=== PATIENT | male | born 1970 | race Hispanic/Latino ===

== ENCOUNTER 2018-03-25 22:40 | Emergency (ER) | payer OTHER ==
[2018-03-25 23:28] LABS: APPEARANCE,URINE Clear (CLEAR); BILIRUBIN,URINE Negative (NEGATIVE); GLUCOSE, URINE (UA) Negative (NEGATIVE); KETONES,URINE Negative (NEGATIVE); LEUKOCYTE ESTERASE ,URINE Small (NEGATIVE); NITRATE,URINE Negative (NEGATIVE); OCCULT BLOOD,URINE Large (NEGATIVE); PH,URINE 6.5 (5.0-8.0); PROTEIN,URINE POS 2+ (NEGATIVE)
[2018-03-25 23:29] LABS: COLOR,URINE BROWN (YELLOW)
[2018-03-25 23:36] LABS: BACTERIA,URINE None Seen /HPF (None Seen); RBC,URINE 51-100 /HPF (0-1); SQUAMOUS EPITHELIAL CELL,UR Few /HPF (0-2)
[2018-03-26 00:59] LABS: BASOPHILS % (AUTO) 0.7 % (0.0-5.0); EOSINOPHILS % (AUTO) 1.5 % (0.0-8.0); HEMATOCRIT 45.9 % (42-54); MEAN CORPUSCULAR HEMOGLOBIN 28.6 pg (27.0-33.0); MEAN CORPUSCULAR HGB CONC 34.6 g/dL (32.0-36.0); MEAN CORPUSCULAR VOLUME 82.7 fL (79-99); MONOCYTES % (AUTO) 5.6 % (3.0-13.0); NEUTROPHILS % (AUTO) 82.2 % (40.0-77.0); NUCLEATED RED BLOOD CELLS 0.1 % (0.0-0.19); PLATELET COUNT (AUTO) 233 K/uL (130-400); RED BLOOD CELL COUNT(AUTO) 5.54 MIL/uL (4.50-6.20); RED CELL DISTRIBUTION WIDTH 14.2 % (11.0-15.5); WHITE BLOOD COUNT (AUTO) 13.4 K/uL (4.8-10.8)
[2018-03-26] MEDS ORDERED: ACETAMINOPHEN 325 MG TAB ONE (00:59)
[2018-03-26] MEDS ORDERED: SULFAMETHOX-TMP DS 800/160 TAB ONE (00:59)
[2018-03-26 01:25] LABS: ALBUMIN 3.9 g/dL (3.5-5.0); BILIRUBIN,TOTAL 0.8 mg/dL (0.2-1.0); CREATININE 1.1 mg/dL (0.5-1.5); POTASSIUM 3.5 mmol/L (3.5-5.1); TOTAL PROTEIN, SERUM 8.2 g/dL (6.0-8.3)
[2018-03-26] MEDS ORDERED: CLONIDINE HCL 0.1 MG TABLET ONE (01:28)
== END 2018-03-26 01:55 | disposition home or self-care (01) ==
LOC: EDH 22:40
DX: N39.0 Urinary tract infection, site not specified (principal); I10 Essential (primary) hypertension; Z79.899 Other long term (current) drug therapy
CPT/HCPCS: 36415; 80053; 81001; 85025; 87040

== ENCOUNTER 2018-05-04 19:48 | Inpatient (IN) | payer SELFPAY ==
[~2018-05-04] VITALS: Ht 172.7 cm; Wt 110.2 kg
[2018-05-04 20:25] LABS: APPEARANCE,URINE Clear (CLEAR); BILIRUBIN,URINE Negative (NEGATIVE); COLOR,URINE Yellow (YELLOW); GLUCOSE, URINE (UA) Negative (NEGATIVE); KETONES,URINE Negative (NEGATIVE); LEUKOCYTE ESTERASE ,URINE Small (NEGATIVE); NITRATE,URINE Negative (NEGATIVE); OCCULT BLOOD,URINE Moderate (NEGATIVE); PROTEIN,URINE POS 1+ (NEGATIVE); UROBILINOGEN,URINE 0.2 mg/dL (0.2-1.0)
[2018-05-04] MEDS ORDERED: KETOROLAC TROMETHAMINE 30MG/ML ONE (20:40)
[2018-05-04 20:41] LABS: BACTERIA,URINE Few /HPF (None Seen)
[2018-05-04 20:56] LABS: BASOPHILS % (AUTO) 0.4 % (0.0-5.0); EOSINOPHILS % (AUTO) 1.1 % (0.0-8.0); HEMATOCRIT 42.9 % (42-54); LYMPHOCYTES % (AUTO) 12.7 % (21.0-51.0); MEAN CORPUSCULAR HEMOGLOBIN 27.1 pg (27.0-33.0); MEAN CORPUSCULAR HGB CONC 33.1 g/dL (32.0-36.0); MEAN CORPUSCULAR VOLUME 81.9 fL (79-99); MONOCYTES % (AUTO) 5.1 % (3.0-13.0); NEUTROPHILS % (AUTO) 80.7 % (40.0-77.0); PLATELET COUNT (AUTO) 387 K/uL (130-400); RED BLOOD CELL COUNT(AUTO) 5.24 MIL/uL (4.50-6.20); WHITE BLOOD COUNT (AUTO) 12.2 K/uL (4.8-10.8)
[2018-05-04 21:08] LABS: CREATININE 1.8 mg/dL (0.5-1.5); POTASSIUM 3.9 mmol/L (3.5-5.1)
[2018-05-04 21:12] LABS: ALBUMIN 3.7 g/dL (3.5-5.0); BILIRUBIN,TOTAL 0.3 mg/dL (0.2-1.0); TOTAL PROTEIN, SERUM 8.2 g/dL (6.0-8.3)
[2018-05-05] VITALS (7 sets, daily range): BP systolic 166–220; BP diastolic 76–116
[2018-05-05] MEDS ORDERED: ACETAMINOPHEN 325 MG TAB PO PRN
[2018-05-05] MEDS ORDERED: MORPHINE SULFATE 4 MG/1ML SYG IV PRN
[2018-05-05] MEDS ORDERED: ONDANSETRON HCL 4 MG/2 ML VIAL IV PRN
[2018-05-05] MEDS ORDERED: LEVOFLOXACIN 500 MG/D5W 100 ML 100 ML ONE (00:47)
[2018-05-05] MEDS ORDERED: LOSA100T20 PO (01:52)
[2018-05-05] MEDS ORDERED: METO-408 PO (01:52)
[2018-05-05] MEDS ORDERED: METOPROLOL TARTRATE 1 MG/ML 5ML VIAL IV PRN (03:15)
[2018-05-05] MEDS ORDERED: METOPROLOL TARTRATE 1 MG/ML 5ML VIAL IV ONE (03:28)
[2018-05-05] MEDS: SODIUM CHLORIDE 0.9% 1000ML 1,000 ML IV SCH ×4 (03:32→19:38)
[2018-05-05] MEDS: FAMOTIDINE 20MG TAB 20 MG TAB PO SCH ×2 (07:56→21:00)
[2018-05-05] MEDS: AMLODIPINE BESYLATE 5 MG TAB PO SCH ×2 (07:56→09:00)
[2018-05-05] MEDS: HYDRALAZINE HCL 20 MG/ML VIAL IV PRN ×2 (11:45→15:10)
[2018-05-05] MEDS ORDERED: KETOROLAC TROMETHAMINE 15MG/ML IM PRN (15:00)
[2018-05-05 16:18] LABS: CREATININE 1.5 mg/dL (0.5-1.5)
[2018-05-05] MEDS ORDERED: ACETAMINOPHEN-CODEINE 300/30MG TAB PO PRN (16:30)
[2018-05-05] MEDS ORDERED: LOSARTAN 100 MG TABLET PO ONE (16:45)
[2018-05-05] MEDS ORDERED: TAMSULOSIN HCL 0.4 MG CAP.ER.24H PO ONE (16:45)
[2018-05-05] MEDS ORDERED: METOPROLOL TARTRATE 25 MG TAB PO ONE (16:45)
[2018-05-05] MEDS ORDERED: IOHEXOL 350 MG/ML 100ML INFUS..BTL IV ONE (20:40)
[2018-05-05] MEDS: METOPROLOL TARTRATE 25 MG TAB PO SCH (21:00)
[2018-05-05] MEDS: LEVOFLOXACIN 500 MG/D5W 100 ML 100 ML IV SCH ×2 (21:02)
[2018-05-06] MEDS: SODIUM CHLORIDE 0.9% 1000ML 1,000 ML IV SCH ×4 (03:25→20:05)
[2018-05-06 03:35] VITALS: BP 167/70
[2018-05-06 04:34] LABS: CREATININE 1.6 mg/dL (0.5-1.5); POTASSIUM 3.6 mmol/L (3.5-5.1)
[2018-05-06 07:49] VITALS: BP 185/77
[2018-05-06] MEDS: LOSARTAN 100 MG TABLET PO SCH (08:19)
[2018-05-06] MEDS: TAMSULOSIN HCL 0.4 MG CAP.ER.24H PO SCH (08:19)
[2018-05-06] MEDS: METOPROLOL TARTRATE 25 MG TAB PO SCH ×2 (08:19→20:05)
[2018-05-06] MEDS: AMLODIPINE BESYLATE 5 MG TAB PO SCH (08:19)
[2018-05-06] MEDS: FAMOTIDINE 20MG TAB 20 MG TAB PO SCH ×2 (08:33→20:05)
[2018-05-06] MEDS ORDERED: ENOXAPARIN SODIUM 30 MG/0.3 ML SQ SCH (09:00)
[2018-05-06 11:24] VITALS: BP 192/104
[2018-05-06] MEDS ORDERED: FUROSEMIDE 10 MG/ML 4ML VIAL ONE (15:16)
[2018-05-06 17:40] VITALS: BP 180/93
[2018-05-06 19:35] VITALS: BP 179/76
[2018-05-06] MEDS: LEVOFLOXACIN 500 MG/D5W 100 ML 100 ML IV SCH (23:12)
[2018-05-06] MEDS: HYDRALAZINE HCL 20 MG/ML VIAL IV PRN (23:17)
[2018-05-06 23:25] VITALS: BP 182/69
[2018-05-07 00:06] VITALS: BP 152/71
[2018-05-07 03:35] VITALS: BP 161/73
[2018-05-07 04:04] LABS: BASOPHILS % (AUTO) 0.8 % (0.0-5.0); EOSINOPHILS % (AUTO) 2.7 % (0.0-8.0); HEMATOCRIT 40.9 % (42-54); LYMPHOCYTES % (AUTO) 22.6 % (21.0-51.0); MEAN CORPUSCULAR HEMOGLOBIN 26.6 pg (27.0-33.0); MEAN CORPUSCULAR HGB CONC 32.6 g/dL (32.0-36.0); MEAN CORPUSCULAR VOLUME 81.7 fL (79-99); MONOCYTES % (AUTO) 6.6 % (3.0-13.0); NEUTROPHILS % (AUTO) 67.3 % (40.0-77.0); NUCLEATED RED BLOOD CELLS 0.1 % (0.0-0.19); PLATELET COUNT (AUTO) 334 K/uL (130-400); RED CELL DISTRIBUTION WIDTH 13.8 % (11.0-15.5)
[2018-05-07 04:11] LABS: CREATININE 1.5 mg/dL (0.5-1.5); POTASSIUM 3.5 mmol/L (3.5-5.1)
[2018-05-07] MEDS: SODIUM CHLORIDE 0.9% 1000ML 1,000 ML IV SCH (04:22)
[2018-05-07 07:58] VITALS: BP 157/97
[2018-05-07] MEDS: METOPROLOL TARTRATE 25 MG TAB PO SCH (08:14)
[2018-05-07] MEDS: AMLODIPINE BESYLATE 5 MG TAB PO SCH (08:14)
[2018-05-07] MEDS: LOSARTAN 100 MG TABLET PO SCH (08:14)
[2018-05-07] MEDS: TAMSULOSIN HCL 0.4 MG CAP.ER.24H PO SCH (08:14)
[2018-05-07] MEDS: FAMOTIDINE 20MG TAB 20 MG TAB PO SCH (08:14)
[2018-05-07 11:54] VITALS: BP 183/100
[2018-05-07 16:18] VITALS: BP 147/84
== END 2018-05-07 19:00 | disposition home or self-care (01) | DRG 690 ==
LOC: EDH 19:48 → EDHIP 19:49 → OBSVTOIN 19:49 → 4AH 05-05 00:51
PROVIDERS: ADMIT Hospitalist; ATTEND Hospitalist
DX: N13.6 Pyonephrosis (principal); N17.9 Acute kidney failure, unspecified; I16.0 Hypertensive urgency; I12.9 Hypertensive chronic kidney disease with stage 1 through stage 4 chronic kidney disease, or unspecified chronic kidney disease; E86.1 Hypovolemia; N18.9 Chronic kidney disease, unspecified
CPT/HCPCS: 36415; 74018; 74176; 78708; 80048; 80053; 81001; 82565; 85025; 87088; A9562; J0360; J1885; J1940; J1956; J2270; J2405; J3490; J7030; Q9967

== ENCOUNTER 2018-05-16 21:11 | Emergency (ER) | payer SELFPAY ==
[~2018-05-16 21:11] MED LIST: LOSA100T20 PO; METO-408 PO
[2018-05-16] MEDS ORDERED: DEXAMETHASONE SOD PHOSPHATE 10MG/ML 1ML VIAL ONE (22:22)
[2018-05-16] MEDS ORDERED: KETOROLAC TROMETHAMINE 60 MG/2 ML VIAL ONE (22:22)
== END 2018-05-16 22:58 | disposition home or self-care (01) ==
LOC: EDH 21:11
DX: M25.532 Pain in left wrist (principal); I10 Essential (primary) hypertension; M19.90 Unspecified osteoarthritis, unspecified site
CPT/HCPCS: 96372 ×2; 99283; J1100; J1885

== ENCOUNTER 2019-03-28 17:44 | Emergency (ER) | payer SELFPAY ==
[~2019-03-28 17:44] MED LIST changes: -LOSA100T20 PO; +LOSA100T58 PO
== END 2019-03-28 18:18 | disposition home or self-care (01) ==
LOC: EDH 17:44
DX: M72.2 Plantar fascial fibromatosis (principal); I10 Essential (primary) hypertension; M19.90 Unspecified osteoarthritis, unspecified site
CPT/HCPCS: 99281

== ENCOUNTER 2023-12-07 10:21 | Emergency (ER) | payer BC, MEDICAID ==
[~2023-12-07] VITALS: Ht 172.7 cm; Wt 93.4 kg
[~2023-12-07 10:21] MED LIST changes: +ALLO100T PO; +AMLO5TAB4 PO; +ASPI-1005 PO; +ATOR20TA65 PO; +HYDR25 PO; +LISI40TA9 PO; -LOSA100T58 PO; -METO-408 PO; +METO50 PO; +PRED10TA23 PO
[2023-12-07 12:21] LABS: BASOPHILS # (AUTO) 0.04 K/uL (0.00-0.20); BASOPHILS % (AUTO) 0.4 % (0.0-5.0); EOSINOPHILS % (AUTO) 2.2 % (0.0-8.0); HEMATOCRIT 34.7 % (42-54); IMMATURE GRANULOCYTE ABSOLUTE 0.02 K/uL (0-1); LYMPHOCYTES # (AUTO) 0.7 K/uL (1.0-4.8); LYMPHOCYTES % (AUTO) 8.1 % (21.0-51.0); MEAN CORPUSCULAR HEMOGLOBIN 24.4 pg (27.0-33.0); MEAN CORPUSCULAR HGB CONC 31.7 g/dL (32.0-36.0); MEAN CORPUSCULAR VOLUME 76.9 fL (79-99); MONOCYTES # (AUTO) 0.7 K/uL (0.1-1.0); MONOCYTES % (AUTO) 8.2 % (3.0-13.0); NEUTROPHILS # (AUTO) 7.3 K/uL (1.8-7.7); NEUTROPHILS % (AUTO) 80.9 % (40.0-77.0); PLATELET COUNT (AUTO) 293 K/uL (130-400); RED BLOOD CELL COUNT(AUTO) 4.51 MIL/uL (4.50-6.20); RED CELL DISTRIBUTION WIDTH 16.5 % (11.0-15.5)
[2023-12-07 12:41] LABS: APPEARANCE,URINE TURBID (CLEAR); BILIRUBIN,URINE 0.5 mg/dL (NEGATIVE); COLOR,URINE ORANGE (YELLOW); GLUCOSE, URINE (UA) NEGATIVE (NEGATIVE); KETONES,URINE NEGATIVE (NEGATIVE); LEUKOCYTE ESTERASE ,URINE 500 Leu/uL (NEGATIVE); NITRATE,URINE NEGATIVE (NEGATIVE); OCCULT BLOOD,URINE LARGE (NEGATIVE); PH,URINE 6.5 (5.0-8.0); PROTEIN,URINE 300 mg/dL (NEGATIVE); UROBILINOGEN,URINE 3 mg/dL (0.2-1.0)
[2023-12-07 12:41] LABS: CREATININE 2.4 mg/dL (0.5-1.3); POTASSIUM 3.3 mmol/L (3.5-5.1)
[2023-12-07 12:49] LABS: ADD UA MICROSCOPIC YES
[2023-12-07 13:08] LABS: BACTERIA,URINE FEW /HPF (None Seen); RBC,URINE TNTC /HPF (0-1); SQUAMOUS EPITHELIAL CELL,UR FEW /HPF (0-2); WBC CLUMP MANY /HPF (0-1); WBC,URINE TNTC /HPF (0-1)
[2023-12-07] MEDS: CEFTRIAXONE 1G VIAL IVPB ONE (13:22)
[2023-12-07] MEDS ORDERED: CEPH500B PO (13:41)
[2023-12-07 14:03] VITALS: BP 127/68; PULSE 83; RESP 17; O2SAT 96
== END 2023-12-07 14:19 | disposition home or self-care (01) ==
LOC: EDH 10:21
DX: N39.0 Urinary tract infection, site not specified (principal); R31.9 Hematuria, unspecified; I12.0 Hypertensive chronic kidney disease with stage 5 chronic kidney disease or end stage renal disease; N18.6 End stage renal disease; R53.1 Weakness; Z79.899 Other long term (current) drug therapy; Z79.82 Long term (current) use of aspirin; Z99.2 Dependence on renal dialysis
CPT/HCPCS: 99284; 96365; 76770; 80048; 85025; 87086 ×2; 87186; 83605; 81001; 36415; J0696

== ENCOUNTER 2024-01-24 17:49 | Emergency (ER) | payer BC, MEDICAID ==
[~2024-01-24] VITALS: Ht 172.7 cm; Wt 92.5 kg
[~2024-01-24 17:49] MED LIST changes: +CEPH500B PO
[2024-01-24 18:35] LABS: COVID19 (SARS ANTIGEN RAPID) PRESUMPTIVE NEGATIVE (NEGATIVE); INFLUENZA TYPE A Negative For Type A (NEGATIVE); INFLUENZA TYPE B Negative For Type B (NEGATIVE)
[2024-01-24 18:39] LABS: HEMATOCRIT 35.8 % (42-54); MEAN CORPUSCULAR HEMOGLOBIN 26.8 pg (27.0-33.0); MEAN CORPUSCULAR HGB CONC 33.5 g/dL (32.0-36.0); MEAN CORPUSCULAR VOLUME 80.1 fL (79-99); PLATELET COUNT (AUTO) 196 K/uL (130-400); RED BLOOD CELL COUNT(AUTO) 4.47 MIL/uL (4.50-6.20); RED CELL DISTRIBUTION WIDTH 18.6 % (11.0-15.5); WHITE BLOOD COUNT (AUTO) 8.3 K/uL (4.8-10.8)
[2024-01-24] MEDS ORDERED: HYDR100T15 PO (18:45)
[2024-01-24 18:48] LABS: APPEARANCE,URINE CLEAR (CLEAR); BILIRUBIN,URINE NEGATIVE (NEGATIVE); COLOR,URINE YELLOW (YELLOW); GLUCOSE, URINE (UA) NEGATIVE (NEGATIVE); KETONES,URINE NEGATIVE (NEGATIVE); LEUKOCYTE ESTERASE ,URINE NEGATIVE Leu/uL (NEGATIVE); NITRATE,URINE NEGATIVE (NEGATIVE); OCCULT BLOOD,URINE NEGATIVE (NEGATIVE); PROTEIN,URINE 200 mg/dL (NEGATIVE)
[2024-01-24 18:50] LABS: BASOPHILS # (AUTO) 0.03 K/uL (0.00-0.20); BASOPHILS % (AUTO) 0.4 % (0.0-5.0); EOSINOPHILS # (AUTO) 0.03 K/uL (0.00-0.70); EOSINOPHILS % (AUTO) 0.4 % (0.0-8.0); IMMATURE GRANULOCYTE ABSOLUTE 0.02 K/uL (0-1); LYMPHOCYTES # (AUTO) 0.6 K/uL (1.0-4.8); LYMPHOCYTES % (AUTO) 6.8 % (21.0-51.0); MONOCYTES # (AUTO) 0.7 K/uL (0.1-1.0); NEUTROPHILS # (AUTO) 6.8 K/uL (1.8-7.7); NEUTROPHILS % (AUTO) 83.2 % (40.0-77.0)
[2024-01-24 18:53] LABS: PROTHROMBIN TIME 10.8 SEC (9.6-11.6)
[2024-01-24] MEDS: acetaMINOPHEN 500 MG TABLET PO ONE (18:54)
[2024-01-24] MEDS: cefTRIAXone 1G VIAL IVPB ONE (18:54)
[2024-01-24 18:55] LABS: ADD UA MICROSCOPIC YES; PARTIAL THROMBOPLASTIN TIME 29.7 SEC (26.3-35.5)
[2024-01-24 18:56] LABS: RBC,URINE 0-1 /HPF (0-1); SQUAMOUS EPITHELIAL CELL,UR RARE /HPF (0-2)
[2024-01-24 18:58] LABS: CREATININE 2.7 mg/dL (0.5-1.3); POTASSIUM 3.9 mmol/L (3.5-5.1)
[2024-01-24 19:02] LABS: ALBUMIN 3.9 g/dL (3.5-5.0); BILIRUBIN,DIRECT 0.2 mg/dL (0.0-0.3); BILIRUBIN,TOTAL 0.9 mg/dL (0.2-1.0); TOTAL PROTEIN, SERUM 7.3 g/dL (6.0-8.3); URIC ACID 4.3 mg/dL (2.6-7.2)
[2024-01-24 19:13] LABS: B-TYPE NATRIURETIC PEPTIDE 290 pg/mL (0-100)
[2024-01-24 19:56] LABS: ERYTHROCYTE SEDIMENTATION RATE 20 MM/HR (0-20)
[2024-01-24] MEDS ORDERED: CEPH500B PO (20:33)
[2024-01-24 21:09] VITALS: TEMP 98.8
[2024-01-24] MEDS: MORPHINE 4 MG SYG IVP ONE (21:09)
[2024-01-24 21:42] VITALS: BP 150/72; PULSE 92; RESP 16; O2SAT 98
== END 2024-01-24 21:44 | disposition home or self-care (01) ==
LOC: EDH 17:49
DX: M25.461 Effusion, right knee (principal); I12.0 Hypertensive chronic kidney disease with stage 5 chronic kidney disease or end stage renal disease; N18.6 End stage renal disease; D63.1 Anemia in chronic kidney disease; J06.9 Acute upper respiratory infection, unspecified; Z20.822 Contact with and (suspected) exposure to COVID-19; Z79.82 Long term (current) use of aspirin; Z79.899 Other long term (current) drug therapy; Z99.2 Dependence on renal dialysis; Z98.890 Other specified postprocedural states
CPT/HCPCS: 99285; 96365; 71045; 96375; 87426; 82550; 80076; 84484; 84550; 80048; 83880; 85025; 85610; 85730; 85651; 87040; 87804 ×2; 83605; 86140; 81001; 36415; 73564; 93005; 84145; J0696; J2270

== ENCOUNTER 2024-04-05 11:59 | Emergency (ER) | payer MEDICAID ==
[~2024-04-05] VITALS: Ht 172.7 cm; Wt 84.4 kg
[~2024-04-05 11:59] MED LIST changes: +HYDR100T15 PO
[2024-04-05] MEDS: teTANUS/diphthERIA TOXOID [ADULT] 0.5 ML VIAL IM ONE (14:15)
[2024-04-05 14:30] VITALS: BP 132/74; PULSE 78; RESP 18; TEMP 97.8; O2SAT 99
== END 2024-04-05 14:30 | disposition home or self-care (01) ==
LOC: EDH 11:59
DX: S91.011A Laceration without foreign body, right ankle, initial encounter (principal); I12.0 Hypertensive chronic kidney disease with stage 5 chronic kidney disease or end stage renal disease; N18.6 End stage renal disease; M10.9 Gout, unspecified; Z79.52 Long term (current) use of systemic steroids; Z79.82 Long term (current) use of aspirin; Z79.899 Other long term (current) drug therapy; Z99.2 Dependence on renal dialysis; W20.8XXA Other cause of strike by thrown, projected or falling object, initial encounter; Y93.89 Activity, other specified; Y92.89 Other specified places as the place of occurrence of the external cause; Y99.8 Other external cause status
CPT/HCPCS: 12002; 73610; 90471; 90714

== ENCOUNTER 2024-04-24 14:33 | Emergency (ER) | payer MEDICARE ==
[~2024-04-24] VITALS: Ht 172.7 cm; Wt 84.8 kg
--- NOTE | 2024-04-24 14:59 | ERN ---
ED Note History of Present Illness Stated Complaint: SUTURE REMOVAL Chief Complaint: Suture/Staple Removal Time Seen by MD: 14:37 Dictation: PATIENT IS A 53-YEAR-OLD MALE COMING IN FOR AN ENCOUNTER FOR REMOVAL OF SUTURES TO THE DORSUM OF THE RIGHT FOOT. HE IS STATUS POST A SLIP FALL ON 04/05 AND HAD A REPAIR DONE OF A [place]ER[place] [facility] [place]. HE SAID HE HAS HAD NO FEVER NO CHILLS NO CAUSING THE VOMITING NO DISCHARGE. Allergies: Coded Allergies: No Known Drug Allergies (Unverified Allergy, Unknown, 05/05/18) Home Meds Active Scripts Cephalexin Monohydrate (Keflex) 500 Mg Cap, 500 MG PO QID for 7 Days, #28 CAP Prov:IBIS HERNANDEZ MD 01/24/24 Cephalexin Monohydrate (Keflex) 500 Mg Cap, 500 MG PO TID, #30 CAP 0 Refills Prov:MISAEL MEDINA MD 12/07/23 Prednisone (Prednisone) 10 Mg Tab.ds.pk, 10 MG PO DAILY, #9 TAB Take 2 tab daily x3 days then take 1 pill daily for 3 days Prov:JUWAN STARK IV, MD 11/13/23 Metoprolol Tartrate (Lopressor 50Mg Tab) 50 Mg Tab, 100 MG PO BID, #60 TAB 0 Refills Prov:JASON GUTIERRES MD 11/08/23 Lisinopril (Lisinopril) 40 Mg Tablet, 40 MG PO DAILY, #30 TAB 0 Refills Prov:JASON GUTIERRES MD 11/08/23 Hydralazine HCl (Apresoline) 25 Mg Tab, 100 MG PO TID, #90 TAB 0 Refills Prov:JASON GUTIERRES MD 11/08/23 Aspirin (ASPIRIN 81MG CHEW TAB) 81 Mg Tab.chew, 81 MG PO DAILY, #30 TAB.CHEW 0 Refills Prov:JASON GUTIERRES MD 11/08/23 Amlodipine Besylate (Norvasc 5Mg Tab) 5 Mg Tablet, 10 MG PO DAILY, #30 TAB 0 Refills Prov:JASON GUTIERRES MD 11/08/23 Allopurinol (Allopurinol) 100 Mg Tablet, 100 MG PO Q24H, #30 TAB 0 Refills Prov:JASON GUTIERRES MD 11/08/23 Atorvastatin Calcium (Atorvastatin Calcium) 20 Mg Tablet, 20 MG PO HS for 30 Days, #30 TAB Prov:JUWAN STARK IV, MD 10/16/23 Reported Medications Hydralazine HCl (Hydralazine HCl) 100 Mg Tablet, 100 MG PO BID, TAB 01/24/24 Past Medical History Past Medical History: Hypertension, Renal Disese, Renal Failure Additional Past Medical Hx: GOUT Surgical History: Other, LAVA Surgical History Other: LEFT UPPER ARM GRAFT PSYCH History: no pertinent psych hx RN Note Reviewed/Agreed w/PFSH: Yes Review of System Dictation CONSTITUTIONAL: NEGATIVE EXCEPT FOR HPI HEAD/FACE: NEGATIVE EXCEPT FOR HPI EENT: NEGATIVE EXCEPT FOR HPI RESPIRATORY: NEGATIVE EXCEPT FOR HPI GASTROINTESTINAL/ABDOMINAL: NEGATIVE EXCEPT FOR HPI GENITOURINARY: NEGATIVE EXCEPT FOR HPI MUSCULOSKELETAL: NEGATIVE EXCEPT FOR HPI INTEGUMENTARY: NEGATIVE EXCEPT FOR HPI LACERATION REPAIR TO DORSUM RIGHT FOOT WITH THREE SIMPLE INTERRUPTED SUTURES POORLY APPROXIMATED WITHOUT ERYTHEMA OR DRAINAGE NEUROLOGICAL/PSYCH: NEGATIVE EXCEPT FOR HPI HEMATOLOGIC/LYMPHATIC: NEGATIVE EXCEPT FOR HPI ALL SYSTEMS NEGATIVE, EXCEPT NOTED ABOVE. 13 POINT REVIEW OF SYSTEMS ASSESSED AND ALL NEGATIVE EXCEPT FOR ABOVE. Initial Vital Sign VS Vital Signs Date Time Temp Pulse Resp B/P (MAP) Pulse Ox O2 Delivery O2 Flow Rate FiO2 04/24/24 14:35 98.4 71 16 141/63 98 Room Air 0 04/24/24 15:39 21 Physical Exam Dictation VITAL SIGNS REVIEWED GENERAL APPEARANCE: ALERT, ORIENTED X 3, NO ACUTE DISTRESS, WELL DEVELOPED, NOURISHED. HEAD AND FACE: NON-TRAUMATIC. EYES: PERRL, PINK CONJUNCTIVAS, EYELID NO TRAUMA, ANTERIOR CHAMBER WITH ARCUS SENILIS. EARS: PINNAS INTACT AND NO SIGNS OF TRAUMA OR ERYTHEMA EAR CANALS CLEAR AND NO DISCHARGE TM NO ERYTHEMA NOSE: NO DISCHARGE, NO BLEEDING. OROPHARYNX: MOUTH NORMAL, TONGUE PINK, PHARYNX CLEAR,NO ERYTHEMA, TONSILS NO EXUDATES, NO ABSCESSES NOTED, MUCOUS MEMBRANE MOIST NECK: SUPPLE, NON-TENDER, NO THYROMEGALY, NO MASSES, NO JVD, NO BRUITS BREAST:DEFERRED CHEST:NO TENDERNESS, NO CREPITUS, NO PARADOXICAL MOVEMENT, NO RETRACTIONS LUNGS:CLEAR, WELL-VENTILATED, SYMMETRIC, NO RALES, NO WHEEZING, NO RHONCHI, NO STRIDOR, GOOD BREATH SOUNDS BILATERALLY HEART: REGULAR RATE, REGULAR RHYTHM, NO MURMUR, NO GALLOPS VASCULAR: NO PERIPHERAL EDEMA, ABDOMEN: SOFT, POSITIVE BOWEL SOUNDS, NONDISTENDED, NO GUARDING, NONTENDER, NO REBOUND, NO MASSES NO HEPATOMEGALY, NO SPLENOMEGALY, NO COOPER'S SIGN, NO HERNIAS. RECTAL: DEFERRED GENITAL: DEFERRED NEUROLOGICAL: NORMAL SPEECH, MOTOR FUNCTION INTACT, SENSORY FUNCTION INTACT MUSCULOSKELETAL: NECK NONTENDER, FULL RANGE OF MOTION, BACK NONTENDER, FULL RAN GE OF MOTION, EXTREMITIES: NONTENDER, FULL RANGE OF MOTION SKIN: COLOR PINK, DRY, NO TURGOR, APPROXIMATE3 CM LACERATION DORSUM OF RIGHT FOOT WITH THREE SIMPLE INTERRUPTED SUTURES POORLY APPROXIMATED WITH OUT ANY INFLAMMATION OR DRAINAGE. LYMPHATIC: DEFERRED Results (Laboratory/Radiology) Labs Reviewed?: Yes ED Course ED Course Vital Signs Date Time Temp Pulse Resp B/P (MAP) Pulse Ox O2 Delivery O2 Flow Rate FiO2 04/24/24 15:39 98.2 86 16 146/75 98 Room Air* 0 21 04/24/24 14:35 98.4 71 16 141/63 98 Room Air 0 Medical Decision Making MDM MEDICAL DISCHARGE MAKING BASED ON REMOVAL OF SUTURES TO RIGHT FOOT. POST SURGERY REMOVE CARE GIVEN TO PARENT Procedure Procedure Dictation: FOURTEEN 50, PROCEDURE EXPLAINED TO PATIENT HE AGREED TO PROCEED THREE SIMPLE INTERRUPTED SUTURES REMOVED FROM LACERATION TO DORSUM RIGHT FOOT WITHOUT DIFFICULTY LACERATION POORLY APPROXIMATED AND IS HEALING BY SECONDARY INTENTION. NO DRAINAGE NO INFLAMMATION DX & DISP Disposition: Discharge Departure Impression: Primary Impression: Encounter for removal of sutures Condition: Stable Additional Instructions: FOLLOW-UP WITH PRIMARY CARE PROVIDER IN 1 TO 2 DAYS. TAKE MEDICATIONS DIRECTED HERE IN THE EMERGENCY ROOM. OKAY TO CONTINUE HOME MEDICATIONS UNLESS OTHERWISE DISCUSSED DURING YOUR VISIT IN THE EMERGENCY ROOM TODAY. RETURN TO YOUR NEAREST EMERGENCY ROOM IF SYMPTOMS WORSEN OR IF THERE IS NO IMPROVEMENT. CALL 911 IF YOU NEED IMMEDIATE ASSISTANCE. TAKE TYLENOL OR MOTRIN [id number] TER NEEDED AND IF NO CONTRAINDICATIONS ARE PRESENT. INCREASE ORAL HYDRATION. A WOUND CULTURE OR URINE CULTURE WAS ORDERED HERE IN THE EMERGENCY ROOM DEPARTMENT PLEASE FOLLOW-UP WITH PRIMARY CARE PROVIDER AND ADVISE THEM TO GET REPEAT PORTS FROM OUR FACILITY. IF YOU HAD ANY BENEDICTO WRAP/SPLINTS THAT WERE APPLIED HERE, PLEASE DO NOT REMOVE THEM UNTIL YOU SEE YOUR PRIMARY CARE OR SP ECIALTY. SEE YOUR PRIMARY CARE DOCTOR FOR FOLLOW UP IN 1-2 DAYS. Referrals: SELF,REFERRAL (PCP) Time of Disposition: 14:58 ATTESTATION BY PHYSICIAN I PERFORMED THE SUBSTANTIVE PORTION OF THE VISIT. I HAVE REVIEWED AND PERSONALLY MADE AND APPROVED THE MANAGEMENT PLAN THAT IS DOCUMENTED IN THE NOTE BY MYSELF FOR THE A PP. I ACKNOWLEDGED FOR RESPONSIBILITY FOR THE PATIENT'S MANAGEMENT PLAN. I have reviewed the case, and I agree with, Diagnosis and Plan NOHELIA MENA NP Apr 24, 2024 14:59 SANAZ SYKES MD Apr 25, 2024 17:59
[2024-04-24 15:39] VITALS: BP 146/75; PULSE 86; RESP 16; TEMP 98.3; O2SAT 98
== END 2024-04-24 15:51 | disposition home or self-care (01) ==
LOC: EDH 14:43
DX: S91.311D Laceration without foreign body, right foot, subsequent encounter (principal); X58.XXXD Exposure to other specified factors, subsequent encounter; I10 Essential (primary) hypertension; M10.9 Gout, unspecified; Z48.02 Encounter for removal of sutures; Z79.52 Long term (current) use of systemic steroids; Z79.82 Long term (current) use of aspirin; Z79.899 Other long term (current) drug therapy
CPT/HCPCS: 99282